=== PATIENT | male | born 1980 | race Asian ===

== ENCOUNTER 2017-07-19 20:54 | Emergency (ER) | payer OTHER ==
[~2017-07-19] VITALS: Ht 175.3 cm; Wt 99.8 kg
[2017-07-19 22:52] LABS: POTASSIUM 3.8 mmol/L (3.6-5.2); SODIUM 137 mmol/L (136-145)
[2017-07-20 01:52] VITALS: BP 137/92; TEMP 98.9
== END 2017-07-20 01:57 | disposition home or self-care (01) ==
LOC: ED 20:54
DX: K40.90 Unilateral inguinal hernia, without obstruction or gangrene, not specified as recurrent (principal); Q63.1 Lobulated, fused and horseshoe kidney
CPT/HCPCS: 36415; 80053; 96374; 99284; J1885; Q9963

== ENCOUNTER 2017-07-27 19:10 | Emergency (ER) | payer OTHER ==
[~2017-07-27] VITALS: Ht 175.3 cm; Wt 99.8 kg
[2017-07-27 20:27] LABS: PLATELET COUNT 288 K/uL (142-355)
[2017-07-27 20:35] LABS: POTASSIUM 3.5 mmol/L (3.6-5.2)
[2017-07-27 22:11] VITALS: BP 135/91; TEMP 98.3
== END 2017-07-27 22:14 | disposition home or self-care (01) ==
LOC: ED 19:10
DX: S80.11XA Contusion of right lower leg, initial encounter (principal); S40.011A Contusion of right shoulder, initial encounter; V89.0XXA Person injured in unspecified motor-vehicle accident, nontraffic, initial encounter
CPT/HCPCS: 80053; 85027; 99283

== ENCOUNTER 2019-03-23 01:59 | Emergency (ER) | payer BC ==
[~2019-03-23] VITALS: Ht 175.3 cm; Wt 99.8 kg
[2019-03-23 02:35] LABS: PLATELET COUNT 192 K/uL (142-355)
[2019-03-23 02:41] LABS: POTASSIUM 3.8 mmol/L (3.6-5.2)
[2019-03-23 06:00] VITALS: BP 128/61; TEMP 97.7
== END 2019-03-23 06:00 | disposition short-term general hospital (02) ==
LOC: ED 01:59
PROVIDERS: Emergency Medicine
DX: K40.90 Unilateral inguinal hernia, without obstruction or gangrene, not specified as recurrent (principal)
CPT/HCPCS: 36415; 80053; 81000; 85027; 96372; 99284; J1885; Q9963

== ENCOUNTER 2019-03-23 05:49 | Outpatient (CLI) | payer BC | END 2019-03-23 06:08 | disposition short-term general hospital (02) | LOC: AMB 05:49 | DX: N50.82 Scrotal pain (principal) | CPT/HCPCS: A0425; A0429 ==

== ENCOUNTER 2021-07-10 15:55 | Emergency (ER) | payer BC ==
[~2021-07-10] VITALS: Ht 177.8 cm; Wt 98.9 kg
[2021-07-10 17:10] VITALS: BP 107/71; TEMP 98.9
== END 2021-07-10 17:10 | disposition home or self-care (01) ==
LOC: ED 15:55
DX: J01.80 Other acute sinusitis (principal); R51.9 Headache, unspecified
CPT/HCPCS: 96372; 99283; J0696; J1100

== ENCOUNTER 2021-07-18 13:27 | Emergency (ER) | payer BC ==
[~2021-07-18] VITALS: Ht 175.3 cm; Wt 98.9 kg
[2021-07-18 13:27] VITALS: TEMP 98.5
[2021-07-18 16:49] VITALS: BP 129/82
== END 2021-07-18 16:49 | disposition home or self-care (01) ==
LOC: ED 13:27
DX: J06.9 Acute upper respiratory infection, unspecified (principal); U07.1 COVID-19
CPT/HCPCS: 87502; 87635; 87651; 99283; U0003

== ENCOUNTER 2021-07-21 09:37 | Outpatient (CLI) | payer BC | END 2021-07-21 19:50 | disposition home or self-care (01) | LOC: RAD 09:37 | PROVIDERS: ATTEND Internal Medicine | DX: J40 Bronchitis, not specified as acute or chronic (principal) ==

== ENCOUNTER 2022-02-09 11:37 | Outpatient (CLI) | payer BC | END 2022-02-09 19:00 | disposition home or self-care (01) | LOC: RAD 11:37 | PROVIDERS: ATTEND Internal Medicine | DX: R20.0 Anesthesia of skin (principal) ==